=== PATIENT | male | born 1970 | race Caucasian/White ===

== ENCOUNTER → 2021-06-11 | Outpatient (CLI) | payer MEDICARE, OTHER ==
[~2021-06-11] MED LIST: AMLODIPINE BESYL5 MG PO; ASPIRIN EC81 MG PO; ATORVASTATIN CA20 MG PO; CATAPRES 0.1MG0.1 MG PO; HYDRALAZINE HCL50 MG PO; LOPRESSOR 50 MG50 MG PO; NICOTINE PATCH1 EAC2 TOP
[2021-06-11 12:44] LABS: HEMOGLOBIN 14.3 gm/dl (14.0-17.5); RED BLOOD COUNT 5.12 M/UL (4.20-5.50); WHITE BLOOD COUNT 9.4 K/UL (4.5-11.0)
[2021-06-12 10:14] LABS: CREATININE, URINE 99.2 mg/dL (Not Estab.)
== END ==
LOC: LAB 11:40
PROVIDERS: Nurse Practitioner Family
DX: E11.9 Type 2 diabetes mellitus without complications (principal); R97.20 Elevated prostate specific antigen [PSA]; E55.9 Vitamin D deficiency, unspecified; Z12.11 Encounter for screening for malignant neoplasm of colon
CPT/HCPCS: 36415; 80053; 80061; 82043; 82570; 84153; 84439; 84443; 85025; 85652; 86140